=== PATIENT | male | born 1945 | race Caucasian/White ===

== ENCOUNTER → 2016-07-12 | Outpatient (CLI) | payer MEDICARE, BC ==
[~2016-07-12] MED LIST: CARDIZEM CD180 MG PO; COREG12.5 MG PO; GLUCOPHAGE XR500 MG PO; HALFPRIN81 MG PO; HYDROCHLOROTHIA25 MG PO; LOTENSIN40 MG PO; SPIRIVA RESPIMAT4 GM INH; SYMBICORT 160-4.6 GM INH; THERA M PLUS T1 EACH PO; TRIAMCINOLONE ACETON TOP; VENTOLIN HFA8 GM INH; ZOCOR80 MG PO
== END | disposition short-term general hospital (02) ==
LOC: CLPULM 03:16
DX: J44.9 Chronic obstructive pulmonary disease, unspecified (principal); J18.9 Pneumonia, unspecified organism; R59.0 Localized enlarged lymph nodes; R09.02 Hypoxemia; R91.1 Solitary pulmonary nodule; E66.9 Obesity, unspecified; E11.9 Type 2 diabetes mellitus without complications; I10 Essential (primary) hypertension; Z87.891 Personal history of nicotine dependence; Z85.46 Personal history of malignant neoplasm of prostate; Z90.79 Acquired absence of other genital organ(s)